=== PATIENT | female | born 1930 | race Caucasian/White ===

== ENCOUNTER 2021-04-21 10:54 | Outpatient (CLI) | payer MEDICARE, OTHER | END 2021-04-21 10:55 | disposition home or self-care (01) | LOC: CSHMAMMO 10:54 | PROVIDERS: ATTEND Obstetrics & Gynecology | DX: Z12.31 Encounter for screening mammogram for malignant neoplasm of breast (principal) | CPT/HCPCS: 77063; 77067 ==